=== PATIENT | male | born 1965 | race African-American/Black ===

== ENCOUNTER 2017-07-05 17:24 | Emergency (ER) | payer OTHER ==
[2017-07-05] MEDS: IBUPROFEN 800 MG TAB PO (20:04)
== END 2017-07-05 20:40 | disposition home or self-care (01) ==
LOC: M ED 17:24
DX: Z04.1 Encounter for examination and observation following transport accident (principal); S43.402A Unspecified sprain of left shoulder joint, initial encounter; V49.40XA Driver injured in collision with unspecified motor vehicles in traffic accident, initial encounter; Y92.410 Unspecified street and highway as the place of occurrence of the external cause; Y93.89 Activity, other specified; Y99.8 Other external cause status
CPT/HCPCS: 73030

== ENCOUNTER → 2018-11-19 | Outpatient (CLI) | payer OTHER ==
[~2018-11-19] MED LIST: CYCL10TA PO; IBUP-1022 PO
--- NOTE | 2018-11-19 09:06 | REP ---
MRI right knee without contrast: History: Pain and swelling of the right knee. Rule out medial meniscal tear. Locking in flexion. No comparison radiographs. Technique: Axial, coronal, and sagittal imaging planes utilized for T1, proton density and T2-weighted scans obtained in the usual fashion with and without fat saturation. MRI findings: Cortical and medullary bone signal intensity are normal. There is a small knee joint effusion. There is increased proton density and T2-weighted signal intensity and some swelling in the proximal patellar tendon at its insertion on the lower pole the patella. There is some patellar spurring here. There is also nonarticular spurring at the quadriceps tendon insertion on the superior pole patellar bone. These findings are consistent with patellar and quadriceps tendonitis. There is mild patellar chondromalacia in the lateral patellar facet with superficial T2 hyperintensities in the articular cartilage. There is a small Alonzo's cyst posteromedially. Anterior posterior cruciate ligaments are intact. There is no evidence of medial or lateral collateral ligament disruption. There is some fluid adjacent to the medial collateral ligament question of MCL strain. There is a tear in the anterior horn of the lateral meniscus with increased signal intensity extending into its anterosuperior meniscal margin. There is a multiloculated parameniscal cyst at the anterolateral joint line associated with this. This fluid collection has overall dimensions of 1.8 cm and is composed of multiple smaller loculations. The lateral meniscus is otherwise intact. There is subtle amputation of the inner free margin of the posterior horn of the medial meniscus. No other evidence of medial meniscal tear is seen. There is a small para meniscal fluid collection along the anterior margin of the medial collateral ligament at the mid meniscal level. This may be a small parameniscal cyst as well. There is moderate chondromalacia in the medial femoral condyle, medial tibial plateau, and in the lateral tibial plateau. Mild chondromalacia is seen in the lateral femoral condyle. No full-thickness articular cartilage disruption is seen. Impression: Anterior horn tear lateral meniscus with parameniscal cyst. Subtle defect in the inner free margin of the medial meniscus. Moderate medial and lateral compartment chondromalacia. Mild patellar chondromalacia. There is evidence of chronic patellar and quadriceps tendonitis. Small joint effusion. Question MCL strain. Electronically Signed by Tam Lyman MD 11/19/2018 01:56 P
== END ==
LOC: M RAD 06:23
PROVIDERS: ATTEND Physician Assistant
DX: S83.281A Other tear of lateral meniscus, current injury, right knee, initial encounter (principal); Y92.9 Unspecified place or not applicable; Y93.9 Activity, unspecified; M23.003 Cystic meniscus, unspecified medial meniscus, right knee; M25.461 Effusion, right knee; M94.261 Chondromalacia, right knee

== ENCOUNTER 2019-03-08 13:57 | Emergency (ER) | payer OTHER ==
[~2019-03-08] VITALS: Ht 180.3 cm; Wt 109.1 kg
[2019-03-08] MEDS ORDERED: NS 500 ML IV ONE (14:15)
[2019-03-08] MEDS ORDERED: MORPHINE 4 MG/ML 1ML VIAL/SYRINGE (J2270) IV ONE (14:15)
[2019-03-08] MEDS ORDERED: ONDANSETRON 4 MG ORAL DISINTEGRATING TAB (Q0162 PER 1MG) PO ONE (14:15)
[2019-03-08] MEDS ORDERED: ONDANSETRON 4MG/2ML VIAL (J2405) As Ordered ONE (14:17)
[2019-03-08] MEDS ORDERED: diphenhydrAMINE INJ 50MG/ML VIAL (J1200) IV STA (14:27)
[2019-03-08] MEDS ORDERED: ONDANSETRON 4MG/2ML VIAL (J2405) IV ONE (14:30)
[2019-03-08 14:37] LABS: BASO % 0.3 % (0.0-1.0); EOS % 0.2 % (0.0-3.0); HEMATOCRIT 42.6 % (42.0-52.0); HEMOGLOBIN 14.1 g/dl (13.5-17.5); LYMPH # 1.8 10^3/uL (1.5-5.0); LYMPH % 12.9 % (24.0-44.0); MEAN CORPUSCULAR HEMOGLOBIN 28.7 pg (27.0-33.0); MEAN CORPUSCULAR HGB CONC 33.1 g/dl (32.0-36.5); MEAN CORPUSCULAR VOLUME 86.6 fl (80.0-96.0); MONO # 0.8 10^3/uL (0.0-0.8); NEUTROPHILS # 11.2 10^3/uL (1.5-8.5); PLATELET COUNT, AUTOMATED 238 10^3/uL (150-450); RED BLOOD COUNT 4.92 10^6/uL (4.30-6.10)
[2019-03-08] MEDS ORDERED: AMMONIA AROMATIC INHALANT (FLOOR STOCK) As Ordered ONE (14:51)
[2019-03-08] MEDS ORDERED: methylPREDNISolone INJ 125 MG/2 ML VIAL (J2930) As Ordered ONE (14:51)
[2019-03-08 14:52] LABS: ALBUMIN 3.9 GM/DL (3.2-5.2); ALT/SGPT 42 U/L (12-78); BILIRUBIN,DIRECT < 0.1 MG/DL (0.0-0.2); BILIRUBIN,TOTAL 0.3 MG/DL (0.2-1.0); LIPASE 156 U/L (73-393); TOTAL PROTEIN 6.9 GM/DL (6.4-8.2)
[2019-03-08] MEDS ORDERED: FAMOTIDINE INJ 20MG/2ML VIAL (S0028) As Ordered ONE (14:52)
[2019-03-08] MEDS ORDERED: FAMOTIDINE INJ 20MG/2ML VIAL (S0028) IVP ONE (15:00)
[2019-03-08] MEDS ORDERED: methylPREDNISolone INJ 125 MG/2 ML VIAL (J2930) IV ONE (15:00)
[2019-03-08] MEDS ORDERED: NS 1,000 ML IV ONE (15:00)
[2019-03-08] MEDS ORDERED: ISOVUE-370 76% 100ML VIAL (Q9967) As Ordered ONE (15:13)
[2019-03-08 15:20] LABS: CK-MB VALUE MASS 2.9 NG/ML (<3.6); CPK CREATINE PHOSPHOKINASE 215 U/L (39-308); MB/CK RELATIVE INDEX 1.35 (< OR =4); TROPONIN I < 0.02 NG/ML (< 0.10)
--- NOTE | 2019-03-08 15:22 | REP ---
Clinical: Acute right-sided abdominal pain. Technique: Axial pre and postcontrast CT of the abdomen and pelvis using 100 ml Isovue 370 intravenous contrast material with coronal and sagittal re-formations. Findings: Mild acute right-sided obstructive uropathy with edematous enlargement to the right kidney along with perinephric and periureteral stranding and mild hydronephrosis and hydroureter is secondary to a 2 mm calculus which is either at the verge of the right ureteral orifice and the bladder or has recently just passed. Correlation with physical examination is recommended. The left kidney/ureter and bladder are otherwise normal in appearance and no further nephroureterolithiasis or bladder calculi are identified. Liver, spleen, pancreas, gallbladder, and bilateral adrenal glands are normal. The enteric system is without obstruction or acute inflammatory process. Normal terminal ileum and appendix are identified in the right lower quadrant. Further evaluation the pelvis demonstrates normal age appropriate prostate gland. The abdominal aorta and vasculature is normal and without aneurysm or dissection. No ascites. No free air. No adenopathy. Lung bases are clear. Impression: 1. Acute right-sided obstructive uropathy secondary to a 2 mm calculus which is either at the verge of the ureteral orifice or has recently passed into the bladder and correlation is recommended. 2. Remainder examination is normal. Electronically Signed by Gino Bowden MD 03/08/2019 03:15 P
[2019-03-08] MEDS ORDERED: ACETAMINOPHEN 500 MG TAB PO ONE (15:30)
[2019-03-08] MEDS ORDERED: KETOROLAC 30 MG/ML VIAL (J1885) IV ONE (15:30)
[2019-03-08] MEDS ORDERED: FLOM0.4C39 PO (17:35)
[2019-03-08] MEDS ORDERED: IBUP-1022 PO (17:36)
[2019-03-08] MEDS ORDERED: PERC5TAB12 PO (17:36)
[2019-03-08 17:40] VITALS: BP 126/68
--- NOTE | 2019-03-10 16:41 | ECGEPIP ---
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
== END 2019-03-08 17:55 | disposition home or self-care (01) ==
LOC: EDBD 13:57 → M ED 13:57
DX: N20.0 Calculus of kidney (principal); R11.2 Nausea with vomiting, unspecified; R53.1 Weakness; R10.9 Unspecified abdominal pain; R14.0 Abdominal distension (gaseous); M54.5 Low back pain; Z88.5 Allergy status to narcotic agent
CPT/HCPCS: 51701; 74178; 80047; 80076; 81001; 82550; 82553; 83690; 84484; 85025; 86850; 86900; 86901; 87040; 93005; 93041; 96361; 96367; 96374; 96375; 99285; J1200; J1885; J2270; J2405; J2930; Q9967

== ENCOUNTER → 2019-12-22 | Outpatient (CLI) | payer OTHER ==
[~2019-12-22] MED LIST changes: +ACET-907 PO; +CYCL-707 PO; -CYCL10TA PO; +FINA5TAB2 PO; +FLOM0.4C39 PO; +METH-1164 PO; +NAPR-885 PO; +NITR0.4S14 SL; +OMEP40CA97 PO; +PERC5TAB12 PO; +PRAZ1CAP PO; +TOPI1CAP4 PO
--- NOTE | 2019-12-22 16:20 | PFTRPT ---
Height: 71.00 Inches Weight: 247.00 Lbs BSA: 2.31 Diagnosis: R06 DATE OF STUDY: 12/22/2019 ORDERED BY: Dr. Julius Johnson Spirometry: Pre and post bronchodilator study of excellent technical quality. Forced vital capacity normal. FEV1 in proportion. Obstructive index is, therefore, normal. Flow Volume Loop: Expiratory limb of the flow volume loop is normal. No significant bronchodilator response identified. Lung Volumes: Total lung capacity normal. Residual volume is in proportion. Diffusing Capacity: Diffusing capacity normal. Hemoglobin: Hemoglobin mildly reduced at 11.7. Airway Mechanics: Airway resistance and conductance are most likely normal. IMPRESSION: Mild anemia. Otherwise, normal study. Please correlate clinically. MTDD
== END ==
LOC: M CARPUL 15:31
PROVIDERS: ATTEND Family Medicine
DX: J45.909 Unspecified asthma, uncomplicated (principal)

== ENCOUNTER → 2019-12-29 | Outpatient (CLI) | payer OTHER ==
[~2019-12-29] MED LIST changes: -METH-1164 PO; +METH1TAB40 PO; +METHACHOLINE KIT (J7674) INH ONE
--- NOTE | 2019-12-29 08:40 | PFTRPT ---
Height: 71.00 Inches Weight: 247.00 Lbs BSA: 2.31 Diagnosis: R05 DATE OF PROCEDURE: 12/29/2019 ORDERED BY: Julius Johnson MD INTERPRETATION: Study of excellent technical quality. Under protocol, methacholine was administered. At a dose of 2.5 mg or 13.875 CDUs, a 39% decline in the FEV1 was noted. PC of 0.35 is significant. Flow rates did return to baseline post bronchodilator administration. IMPRESSION: Positive methacholine challenge study. MTDD
== END ==
LOC: M CARPUL 07:47
PROVIDERS: ATTEND Family Medicine
DX: R05 Cough (principal)
CPT/HCPCS: 94070; J7674

== ENCOUNTER 2020-01-24 06:37 | Day surgery (SDC) | payer OTHER ==
[~2020-01-24] VITALS: Ht 185.4 cm; Wt 112.5 kg
[~2020-01-24 06:37] MED LIST changes: -METHACHOLINE KIT (J7674) INH ONE
[2020-01-24] MEDS ORDERED: NS 1,000 ML IV ONE (07:00)
[2020-01-24] MEDS ORDERED: LIDOCAINE 2% 100MG/5ML SDV (FOR ANES.) As Ordered ONE (07:47)
[2020-01-24] MEDS ORDERED: propofoL 200 MG/20 ML VIAL As Ordered ONE (07:47)
[2020-01-24] MEDS ORDERED: fentaNYL 100 MCG/2 ML INJECTION (J3010) As Ordered ONE (07:48)
--- NOTE | 2020-01-24 08:33 | ROOR ---
Patient Name: Sadi Conti Procedure Date: 01/24/2020 8:14 AM Date of : 1965 Age: 54 Room: [facility] Gender: Male Note Status: Finalized Procedure: Upper Endoscopy + Biopsies Indications: Heartburn, Exclusion of Pinto's esophagus Providers: Zev Smallwood MD Referring MD: YANCY HANIES MD Requesting Provider: Medicines: Monitored Anesthesia Care Complications: No immediate complications. Procedure: Pre-Anesthesia Assessment: - The heart rate, respiratory rate, oxygen saturations, blood pressure, adequacy of pulmonary ventilation, and response to care were monitored throughout the procedure. The Endoscope was introduced through the mouth, and advanced to the second part of duodenum. The upper GI endoscopy was accomplished without difficulty. The patient tolerated the procedure well. Findings: The Z-line was irregular and was found 40 cm from the incisors. Multiple biopsies were obtained with cold forceps for evaluation to rule out Pinto's Esophagus randomly at the gastroesophageal junction. A small hiatal hernia was present. No other significant abnormalities were identified in a careful examination of the stomach. The exam of the duodenum was otherwise normal. Impression: - Z-line irregular, 40 cm from the incisors. - Small hiatal hernia. - Multiple biopsies were obtained at the gastroesophageal junction. - The examination was otherwise normal. Recommendation: - Patient has a contact number available for emergencies. The signs and symptoms of potential delayed complications were discussed with the patient. Return to normal activities tomorrow. Written discharge instructions were provided to the patient. - High fiber diet. - Discharge patient to home. - Follow an antireflux regimen. - Continue present medications. - Await pathology results. - Telephone GI clinic for pathology results in 1 week. - Return to referring physician. - The findings and recommendations were discussed with the patient. Zev Smallwood MD Zev Smallwood MD 01/24/2020 8:33:34 AM Electronically signed by Zev Smallwood MD Number of Addenda: 0 Note Initiated On: 01/24/2020 8:14 AM Estimated Blood Loss: Estimated blood loss: none.
[2020-01-24 09:01] VITALS: BP 131/78
== END 2020-01-24 09:01 | disposition home or self-care (01) ==
LOC: M OPP 06:37
PROVIDERS: ATTEND Internal Medicine Gastroenterology
DX: K22.8 Other specified diseases of esophagus (principal); K44.9 Diaphragmatic hernia without obstruction or gangrene; R12 Heartburn
CPT/HCPCS: 43239; 88305; J3010

== ENCOUNTER → 2020-03-02 | Outpatient (REF) | payer OTHER | LOC: M LAB REF 15:30 | PROVIDERS: ATTEND Internal Medicine Endocrinology, Diabetes & Metabolism | DX: E04.2 Nontoxic multinodular goiter (principal) ==